=== PATIENT | female | born 1985 | race Caucasian/White ===

== ENCOUNTER 2017-06-05 21:27 | Emergency (ER) | payer OTHER ==
[2017-06-05 22:12] LABS: COLOR YELLOW; LEUKOCYTE ESTERASE,URINE 2+ (NEGATIVE); NITRITE,URINE NEGATIVE (NEGATIVE)
[2017-06-05 22:16] LABS: BACTERIA 1+ /hpf (NONE SEEN); MUCUS 2+ /lpf (NONE-1+); RBC,URINE 15-25 /hpf (0-3); WBC,URINE 50-182 /hpf (0-3)
[2017-06-05 22:30] LABS: % IMMATURE GRANULYOCYTES 0.3 % (0.0-1.1); ABSOLUTE IMMATURE GRANULOCYTES 0.02 10^3/uL (0.00-0.10); ADD DIFF? NO; ADD MORPH? NO; ADD SCAN? NO; ATYPICAL LYMPHOCYTE FLAG 10 (0-99); FRAGMENT RBC FLAG 0 (0-99); HEMATOCRIT 39.5 % (38.0-47.0); HEMOGLOBIN 13.6 g/dL (12.6-16.3); LEFT SHIFT FLG 0 (0-99); LIPEMIA HEMOLYSIS FLAG 90 (0-99); MEAN CELL HEMOGLOBIN 31.4 pg (27.9-34.1); MEAN CELL HEMOGLOBIN CONCENTR. 34.4 g/dL (32.4-36.7); MEAN CELL VOLUME 91.2 fL (81.5-99.8); MEAN PLATELET VOLUME 11.3 fL (8.7-11.7); PLATELET CLUMPS FLAG 0 (0-99); PLATELET COUNT 180 10^3/uL (150-400); RED BLOOD CELL COUNT 4.33 10^6/uL (4.18-5.33); RED CELL DISTRIBUTION WIDTH 12.6 % (11.5-15.2)
[2017-06-05 22:42] LABS: ANION GAP 12 mEq/L (8-16); CALCIUM 9.7 mg/dL (8.5-10.4); CARBON DIOXIDE 26 mEq/l (22-31); CHLORIDE 102 mEq/L (97-110); CREATININE 0.8 mg/dL (0.6-1.0); GLOMERULAR FILTRATION RATE > 60; GLUCOSE 105 mg/dL (70-100); POTASSIUM 3.7 mEq/L (3.5-5.2); SODIUM 140 mEq/L (134-144)
[2017-06-05 23:33] VITALS: RESP 15
--- NOTE | 2017-06-06 00:53 | EDPHY ---
H & P Stated Complaint: pt states that she started her period today, c/o increased pain HPI/ROS: Chief complaint: Pelvic pain History of present illness: This is a 31-year-old female who presents to the emergency department for evaluation of pelvic pain. Patient reports the onset of symptoms this morning. She states they coincide with the onset of her menstrual cycle. However, her pain is more intense than she normally feels with a normal menstrual cycle. It is primarily in the center aspect of the pelvis. However, she is concerned this might be a urinary tract infection as she is having associated urinary symptoms. She denies precipitating factors. She denies alleviating factors. She denies other associated signs or symptoms including no fevers, no back or flank pain, no abnormal vaginal discharge, no abdominal pain, no diarrhea or constipation. Review of systems: A 10 point review of systems was obtained and other than described above was negative - Personal History LMP (Females 10-55): Now Current Tetanus Diphtheria and Acellular Pertussis (TDAP): Unsure - Medical/Surgical History Hx Asthma: No Hx Chronic Respiratory Disease: No Hx Diabetes: No Hx Cardiac Disease: No Hx Renal Disease: No Hx Cirrhosis: No Hx Alcoholism: No Hx HIV/AIDS: No Hx Splenectomy or Spleen Trauma: No Other PMH: eye surgery, partial kidney removed with extra ureter age 8yrs. bacterial vaginosis in past. 2 utis 2013 - Social History Smoking Status: Former smoker Additional Social History: No STI risk factors - Physical Exam Exam: General Appearance: Alert, no distress. Eyes: Pupils equal and round no pallor or injection. ENT, Mouth: Mucous membranes moist. Respiratory: There are no retractions, lungs are clear to auscultation. Cardiovascular: Regular rate and rhythm. Gastrointestinal: Abdomen is soft and non tender, no masses, bowel sounds normal. Genitourinary: No CVA tenderness Neurological: Alert and oriented x4. Strength and sensation intact and symmetrical. Skin: Warm and dry, no rashes. Musculoskeletal: Neck is supple non tender. Extremities are symmetrical, full range of motion. Psychiatric: Patient is oriented X 3, there is no agitation. Constitutional: Initial Vital Signs Temperature (C) 37 C 06/05/17 21:42 Heart Rate 78 06/05/17 21:42 Respiratory Rate 20 06/05/17 21:42 Blood Pressure 126/90 H 06/05/17 21:42 O2 Sat (%) 98 06/05/17 21:42 O2 Delivery Mode Room Air Allergies/Adverse Reactions: metronidazole [From Flagyl] Allergy (Mild, Verified 07/05/15 10:57) THRUSH Metronidazole HCl [From Flagyl] Allergy (Mild, Verified 07/05/15 10:57) THRUSH Home Medications: Medication Instructions Recorded Probiotic 06/29/15 Cephalexin [Keflex (*)] 500 mg PO TID 6 Days 06/06/17 Phenazopyridine HCl [Pyridium] 100 mg PO TID #5 tab 06/06/17 Medical Decision Making ED Course/Re-evaluation: Patient seen under the supervision of my secondary supervising physician Dr. Edson Bradley. Patient presents to the emergency department for pelvic pain, she is concerned she has urinary tract infection. She is nontoxic. Vital signs are stable. Blood studies largely unremarkable. Ultrasound does show an increased endometrium of unclear significance, she is menstruating. Ultimately however she does he appear to have a urinary tract infection. Again she is nontoxic. I believe she is appropriate for outpatient management. She will be started on Keflex and discharged home on Keflex. Home care is discussed. Strict return precautions are given. Patient voiced understanding and agreement with plan. Differential Diagnosis: But not limited to cystitis, pyelonephritis, nephrolithiasis, vaginal infections of multiple etiologies, PID, ovarian cyst, ovarian torsion, with associated complications - Data Points Laboratory Results: Laboratory Results 06/05/17 22:17 06/05/17 22:17 Medications Given: Discontinued Medications Cephalexin (Keflex 500 Mg Prepack#4) 1 btl TAKEHOME EDNOW ONE PRN Reason: Protocol Stop: 06/06/17 01:06 Last Admin: 06/06/17 01:13 Dose: 1 btl Cephalexin HCl (Keflex) 500 mg PO EDNOW ONE PRN Reason: Protocol Stop: 06/06/17 01:06 Last Admin: 06/06/17 01:13 Dose: 500 mg Phenazopyridine HCl (Pyridium) 200 mg PO EDNOW ONE Stop: 06/06/17 01:11 Last Admin: 06/06/17 01:13 Dose: 200 mg Departure - Departure Disposition: Home, Routine, Self-Care Clinical Impression: Urinary tract infection Qualifiers: Urinary tract infection type: site unspecified Hematuria presence: with hematuria Qualified Code(s): N39.0 - Urinary tract infection, site not specified ; R31.9 - Hematuria, unspecified Condition: Good Instructions: Cephalexin (By mouth), Urinary Tract Infection in Women (ED) Additional Instructions: Follow-up with her primary care doctor for recheck Use ibuprofen 600 mg 3 times a day Take all antibiotics as prescribed until finished even feeling better If symptoms worsen or new symptoms develop return to the emergency room for recheck Referrals: Brook Sawyer MD [Primary Care Provider] - As per Instructions Prescriptions: Cephalexin [Keflex (*)] 500 mg PO TID 6 Days Phenazopyridine HCl [Pyridium] 100 mg PO TID #5 tab
[2017-06-06] MEDS ORDERED: CEPHALEXIN 500MG PREPACK#4 BTL TAKEHOME ONE (01:05)
[2017-06-06] MEDS ORDERED: CEPHALEXIN 500 MG CAP PO ONE (01:05)
[2017-06-06] MEDS ORDERED: PHENAZOPYRIDINE HCL 200 MG TAB PO ONE (01:10)
[2017-06-06 01:24] VITALS: BP 113/74; PULSE 70; TEMP 98.4; O2SAT 97
== END 2017-06-06 01:15 | disposition home or self-care (01) ==
DX: N39.0 Urinary tract infection, site not specified (principal); B96.89 Other specified bacterial agents as the cause of diseases classified elsewhere; Z87.891 Personal history of nicotine dependence